=== PATIENT | female | born 1985 | race Hispanic/Latino ===

== ENCOUNTER 2020-02-13 19:19 | Emergency (ER) | payer OTHER ==
--- NOTE | 2020-02-13 20:44 | EDM.PDOC ---
ED HPI GENERAL MEDICAL PROBLEM - General Chief Complaint: EXPEDITION SUPERVISOR Problem Stated Complaint: 9 WKS , BLEEDING Time Seen by Provider: 02/13/20 19:23 Source of Information: Reports: Patient History Limitations: Reports: No Limitations - History of Present Illness INITIAL COMMENTS - FREE TEXT/NARRATIVE: HISTORY AND PHYSICAL: History of present illness: Patient is a 34-year-old female who presents to the emergency room with complaints of vaginal bleeding in . She states this evening she had gone to the bathroom to have a bowel movement and as she was bearing down and wiping she noticed blood on the toilet paper. Initially she thought it was from her rectum but then after rechecking it was from the vagina. She denies any abdominal pain, cramping, dysuria, recent pelvic activity or vaginal discharge. Patient denies any fever, chills, headache, change in vision, syncope or near syncope. Denies any chest pain, back pain, shortness of breath or cough. Patient has been eating and drinking appropriately. : 3, Para: 2. Currently 9 weeks , sees Dr Dawkins at [facility]. Review of systems: As per history of present illness and below otherwise all systems reviewed and negative. Past medical history: As per history of present illness and as reviewed below otherwise noncontributory. Surgical history: As per history of present illness and as reviewed below otherwise noncontributory. Social history: See social history for further information Family history: As per history of present illness and as reviewed below otherwise noncontributory. Physical exam: General: Well developed and well nourished. Alert and orientated x 3. Nontoxic in appearance and in no acute distress. Vital signs are stable and have been re viewed by me. Nursing notes were reviewed. HEENT: Atraumatic, normocephalic, pupils equal and reactive bilaterally, negative for conjunctival pallor or scleral icterus, mucous membranes moist, TMs normal bilaterally, throat clear, neck supple, nontender, trachea midline. No drooling or trismus noted. No meningeal signs. No hot potato voice noted. Lungs: Clear to auscultation, breath sounds equal bilaterally, chest nontender. Normal work of breathing, no accessory muscles used. Heart: S1S2, regular rate and rhythm without overt murmur Abdomen: Soft, nondistended, nontender. Negative for masses or hepatosplenomegaly. Negative for costovertebral tenderness. Pelvis: Stable nontender. Genitourinary: This was done with consent and a hotel associate at the bedside. The cervical os is closed and there is dark blood in the vaginal vault. No cervical motion tenderness. Skin: Intact, warm, dry. No lesions or rashes noted. Hematologic: No petechiae or purpra. Mucosa appropriate color and normal nail bed color and refill. Extremities: Atraumatic, moves all extremities per self without difficulty or deficits, negative for cords or calf pain. Neurovascular unremarkable. Neuro: Awake, alert, oriented. Cranial nerves II through XII unremarkable. Cerebellum unremarkable. Motor and sensory unremarkable throughout. Exam nonfocal. Psychiatric: Mood and affect are appropriate. Normal thought process. Answering questions appropriately. Notes: Pelvic exam was done, I do not notice any active bleeding. Lab work is unremarkable. Ultrasound shows single IUP with approximate age of 9 weeks and 4 days with heart rate of 179. Lab work is unremarkable. I have talked with the patient about today's findings, in addition to providing specific details for plan of care. Reassessment at the time of disposition demonstrates that the patient is in no acute distress. The patient is stable for discharge, counseling was provided and we discussed in great detail signs and symptoms that would prompt them to return to the Emergency Department. Medication, follow up and supportive care measures were reviewed and discussed. Voices understanding and is agreeable to plan of care. Denies any further questions or concerns at this time. Diagnostics: CBC, CMP, UA, hCG U, AB/RH, transvaginal ultrasound Therapeutics: None Prescription: Outpatient quantitative hCG Impression: Threatened miscarriage Plan: 1. Please start and/or continue to take your vitamin with folic acid once daily. 2. Pelvic rest until cleared by your OBGYN (no tampons, sex, etc...) 3. Tylenol as needed for pain management. 4. Follow up with your EXPEDITION SUPERVISOR in the next 1-2 days. Return to the ED as needed and as discussed. Definitive disposition and diagnosis as appropriate pending reevaluation and review of above. - Related Data Allergies Allergy/AdvReac Type Severity Reaction Status Date / Time No Known Allergies Allergy Verified 02/13/20 21:24 Home Meds: Home Meds Pnv No.95/Ferrous Fum/Folic AC [ Caplet] 1 cap PO DAILY 02/13/20 [History] Past Medical History - Past Health History Medical/Surgical History: Denies Medical/Surgical History Social & Family History - Family History Family Medical History: No Pertinent Family History - Caffeine Use Caffeine Use: Reports: None ED ROS GENERAL - Review of Systems Review Of Systems: Comprehensive ROS is negative, except as noted in HPI. ED EXAM - Physical Exam Exam: See Below (See dictation) Course - Vital Signs Last Recorded V/S: Last Vital Signs Temp 97.2 F 02/13/20 22:38 Pulse 77 02/13/20 22:38 Resp 18 02/13/20 22:38 BP 137/82 02/13/20 22:38 Pulse Ox 97 02/13/20 22:38 - Orders/Labs/Meds Labs: Laboratory Tests 02/13/20 02/13/20 02/13/20 Range/Units 20:20 20:29 20:29 WBC 9.17 (4.0-11.0) K/uL RBC 4.29 L (4.30-5.90) M/uL Hgb 13.0 (12.0-16.0) g/dL Hct 38.9 (36.0-46.0) % MCV 90.7 (80.0-98.0) fL MCH 30.3 (27.0-32.0) pg MCHC 33.4 (31.0-37.0) g/dL RDW Std Deviation 42.7 (28.0-62.0) fl RDW Coeff of Norma 13 (11.0-15.0) % Plt Count 266 (150-400) K/uL MPV 10.70 (7.40-12.00) fL Neut % (Auto) 69.0 (48.0-80.0) % Lymph % (Auto) 23.0 (16.0-40.0) % Frio % (Auto) 7.3 (0.0-15.0) % Eos % (Auto) 0.5 (0.0-7.0) % Baso % (Auto) 0.2 (0.0-1.5) % Neut # (Auto) 6.3 H (1.4-5.7) K/uL Lymph # (Auto) 2.1 (0.6-2.4) K/uL Frio # (Auto) 0.7 (0.0-0.8) K/uL Eos # (Auto) 0.1 (0.0-0.7) K/uL Baso # (Auto) 0.0 (0.0-0.1) K/uL Nucleated RBC % 0.0 /100WBC Nucleated RBCs # 0 K/uL HCG, Quant 793047.0 mIU/mL Urine Color YELLOW Urine Appearance SLT CLOUDY Urine pH 7.0 (5.0-8.0) Ur Specific Montgomery 1.025 (1.001-1.035) Urine Protein NEGATIVE (NEGATIVE) mg/dL Urine Glucose (UA) NEGATIVE (NEGATIVE) mg/dL Urine Ketones NEGATIVE (NEGATIVE) mg/dL Urine Occult Blood MODERATE H (NEGATIVE) Urine Nitrite NEGATIVE (NEGATIVE) Urine Bilirubin NEGATIVE (NEGATIVE) Urine Urobilinogen 0.2 (<2.0) EU/dL Ur Leukocyte Esterase NEGATIVE (NEGATIVE) Urine RBC 2-3 (0-2/HPF) Urine WBC 0-1 (0-5/HPF) Ur Epithelial Cells RARE (NONE-FEW) Amorphous Sediment MODERATE (NEGATIVE) Urine Bacteria RARE (NEGATIVE) Blood Type 02/13/20 Range/Units 20:29 WBC (4.0-11.0) K/uL RBC (4.30-5.90) M/uL Hgb (12.0-16.0) g/dL Hct (36.0-46.0) % MCV (80.0-98.0) fL MCH (27.0-32.0) pg MCHC (31.0-37.0) g/dL RDW Std Deviation (28.0-62.0) fl RDW Coeff of Norma (11.0-15.0) % Plt Count (150-400) K/uL MPV (7.40-12.00) fL Neut % (Auto) (48.0-80.0) % Lymph % (Auto) (16.0-40.0) % Frio % (Auto) (0.0-15.0) % Eos % (Auto) (0.0-7.0) % Baso % (Auto) (0.0-1.5) % Neut # (Auto) (1.4-5.7) K/uL Lymph # (Auto) (0.6-2.4) K/uL Frio # (Auto) (0.0-0.8) K/uL Eos # (Auto) (0.0-0.7) K/uL Baso # (Auto) (0.0-0.1) K/uL Nucleated RBC % /100WBC Nucleated RBCs # K/uL HCG, Quant mIU/mL Urine Color Urine Appearance Urine pH (5.0-8.0) Ur Specific Montgomery (1.001-1.035) Urine Protein (NEGATIVE) mg/dL Urine Glucose (UA) (NEGATIVE) mg/dL Urine Ketones (NEGATIVE) mg/dL Urine Occult Blood (NEGATIVE) Urine Nitrite (NEGATIVE) Urine Bilirubin (NEGATIVE) Urine Urobilinogen (<2.0) EU/dL Ur Leukocyte Esterase (NEGATIVE) Urine RBC (0-2/HPF) Urine WBC (0-5/HPF) Ur Epithelial Cells (NONE-FEW) Amorphous Sediment (NEGATIVE) Urine Bacteria (NEGATIVE) Blood Type O POSITIVE Departure - Departure Time of Disposition: 22:00 Disposition: Home, Self-Care 01 Clinical Impression: Threatened miscarriage in early - Discharge Information Instructions: Threatened Miscarriage, [id number] Referrals: PCP,None [Primary Care Provider] - Forms: ED Department Discharge Additional Instructions: The following information is given to patients seen in the emergency department who are being discharged to home. This information is to outline your options for follow-up care. We provide all patients seen in our emergency department with a follow-up referral. The need for follow-up, as well as the timing and circumstances, are variable depending upon the specifics of your emergency department visit. If you don't have a primary care physician on staff, we will provide you with a referral. We always advise you to contact your personal physician following an emergency department visit to inform them of the circumstance of the visit and for follow-up with them and/or the need for any referrals to a consulting specialist. The emergency department will also refer you to a specialist when appropriate. This referral assures that you have the opportunity for follow-up care with a specialist. All of these measure are taken in an effort to provide you with optimal care, which includes your follow-up. Under all circumstances we always encourage you to contact your private physician who remains a resource for coordinating your care. When calling for follow-up care, please make the office aware that this follow-up is from your recent emergency room visit. If for any reason you are refused follow-up, please contact the [facility] Emergency Department at and asked to speak to the emergency department charge nurse. [facility] [address], [place] [address] [facility] [address] [place] [id number] Thank you for choosing the [facility] emergency department in [place] for your medical needs today. It was a pleasure caring for you. Today you were seen in the emergency department for vaginal bleeding in . 1. Please start and/or continue to take your vitamin with folic acid once daily. 2. Pelvic rest until cleared by your OBGYN (no tampons, sex, etc...) 3. Tylenol as needed for pain management. 4. Follow up with your EXPEDITION SUPERVISOR in the next 1-2 days. Return to the ED as needed and as discussed.
--- NOTE | 2020-02-13 22:18 | US ---
Indication: Bleeding Technique: Multiple grayscale and Doppler sonographic images of the pelvis. Comparison: None Findings: There is a single live intrauterine gestation with crown-rump length of 2.3 cm, corresponding to approximate gestational age of 9 weeks, 4 days. A heart beat is detected with rate of 179 beats per minute. There is otherwise normal sonographic appearance of the uterus. The right ovary measures 2.3 x 3.4 x 3.5 cm and appears unremarkable. The left ovary measures 3.1 x 2.2 x 3.2 cm. A 2.3 cm cystic focus in the left ovary likely represents a corpus luteum. Impression: Single live intrauterine gestation with approximate age of 9 weeks, 4 days and heart rate of 179 bpm. Dictated by Dorinda Quinn MD @ Feb 13 2020 10:12PM Signed by Dr. Dorinda Quinn @ Feb 13 2020 10:17PM
[2020-02-13 23:17] VITALS: BP 137/82; PULSE 77
== END 2020-02-13 22:38 | disposition home or self-care (01) ==
LOC: MW.ED 19:19
DX: O20.0 Threatened abortion (principal); Z3A.09 9 weeks gestation of pregnancy
CPT/HCPCS: 36415; 76801; 76801-26; 81001; 84702; 85025; 86900; 86901; 99282; 99284-25

== ENCOUNTER 2020-08-24 18:25 | Inpatient (IN) | payer OTHER ==
[2020-08-24] MEDS ORDERED: Sodium Chloride 0.9% 10 ML Syringe FLUSH PRN (19:36)
[2020-08-24] MEDS ORDERED: Citric Acid/Sodium Citrate Solution 30 ML Cup PO ONE (19:36)
[2020-08-24] MEDS ORDERED: Sodium Chloride 0.9% 2.5 ML Syringe FLUSH PRN (19:36)
[2020-08-24] MEDS ORDERED: Sodium Chloride 0.9% 10 ML SDV IV PRN (19:36)
[2020-08-24] MEDS ORDERED: ceFAZolin 2 GM in Premix Bag 1 BAG IV ONE (19:36)
[2020-08-24] MEDS: Lactated Ringers 1,000 ML IV SCH ×3 (19:40→20:54)
[2020-08-24] MEDS ORDERED: Oxytocin/0.9 % Sodium Chloride 30 UNIT/500 ML BAG IV SCH (19:45)
[2020-08-24] MEDS ORDERED: Sodium Chloride 0.9% 60 ML ONE (20:05)
[2020-08-24] MEDS ORDERED: Nalbuphine 10 MG/1 ML Vial IVPUSH PRN (20:51)
[2020-08-24] MEDS ORDERED: Ondansetron 4 MG/2 ML SDV IVPUSH PRN ×2 (20:51→22:40)
[2020-08-24] MEDS ORDERED: fentaNYL 100 MCG/2 ML SDV IVPUSH PRN (20:51)
[2020-08-24] MEDS ORDERED: diphenhydrAMINE 50 MG/ML SDV IVPUSH PRN ×2 (20:51→22:40)
[2020-08-24] MEDS ORDERED: Acetaminophen/oxyCODONE 325-5 MG Tab PO PRN (20:51)
[2020-08-24] MEDS ORDERED: Naloxone 0.4 MG/ML Syringe IVPUSH PRN (20:51)
--- NOTE | 2020-08-24 20:51 | PCM.PREANE ---
Preanesthetic Assessment - Anesthesia/Transfusion/Family Hx Anesthesia History: Prior Anesthesia Without Reaction Family History of Anesthesia Reaction: No Transfusion History: No Prior Transfusion(s) - Review of Systems General: No Symptoms Pulmonary: No Symptoms Cardiovascular: No Symptoms Gastrointestinal: No Symptoms Neurological: No Symptoms Other: Reports: None - Physical Assessment NPO Status Date: 08/24/20 (1300 lunch) Height: 5 ft 2 in Weight: 242 lb ASA Class: 2E Mental Status: Alert & Oriented x3 Airway Class: Mallampati = 2 Dentition: Reports: Normal Dentition ROM/Head Extension: Limited/Partial Lungs: Clear to Auscultation, Normal Respiratory Effort Cardiovascular: Regular Rate, Regular Rhythm - Lab Values: Laboratory Last Values WBC 11.15 K/uL (4.0-11.0) H 08/24/20 19:40 RBC 4.01 M/uL (4.30-5.90) L 08/24/20 19:40 Hgb 11.3 g/dL (12.0-16.0) L 08/24/20 19:40 Hct 34.8 % (36.0-46.0) L 08/24/20 19:40 MCV 86.8 fL (80.0-98.0) 08/24/20 19:40 MCH 28.2 pg (27.0-32.0) 08/24/20 19:40 MCHC 32.5 g/dL (31.0-37.0) 08/24/20 19:40 RDW Std Deviation 46.9 fl (28.0-62.0) 08/24/20 19:40 RDW Coeff of Norma 15 % (11.0-15.0) 08/24/20 19:40 Plt Count 209 K/uL (150-400) 08/24/20 19:40 MPV 12.00 fL (7.40-12.00) 08/24/20 19:40 Nucleated RBC % 0.0 /100WBC 08/24/20 19:40 Nucleated RBCs # 0 K/uL 08/24/20 19:40 POC Glucose 90 mg/dL (70-99) 08/24/20 19:43 Membrane Rupture POSITIVE 08/24/20 18:20 SARS-CoV-2 RNA (NEREIDA) NEGATIVE (NEGATIVE) 08/24/20 18:20 - Allergies Allergies/Adverse Reactions: Allergies Allergy/AdvReac Type Severity Reaction Status Date / Time No Known Allergies Allergy Verified 06/29/20 13:12 - Acknowledgements Anesthesia Type Planned: Spinal Pt an Appropriate Candidate for the Planned Anesthesia: Yes Alternatives and Risks of Anesthesia Discussed w Pt/Guardian: Yes Pt/Guardian Understands and Agrees with Anesthesia Plan: Yes Additional Comments: npo after 1300, water till 1600 G3 scheduled c/s Monday gestational DM obesity par no questions PreAnesthesia Questionnaire - Past Health History Medical/Surgical History: Denies Medical/Surgical History HEENT History: Reports: Impaired Vision Other HEENT History: Contacts Cardiovascular History: Reports: None Respiratory History: Reports: None Gastrointestinal History: Reports: Cholelithiasis Genitourinary History: Reports: None ASSURANCE ENGINEER History: Reports: Other OB/BYN History: x 2 c section Musculoskeletal History: Reports: None Neurological History: Reports: None Psychiatric History: Reports: None Endocrine/Metabolic History: Reports: Diabetes, Gestational, Obesity/BMI 30+ Hematologic History: Reports: None Immunologic History: Reports: None Oncologic (Cancer) History: Reports: None Dermatologic History: Reports: None - Infectious Disease History Infectious Disease History: Reports: None - Past Surgical History Head Surgeries/Procedures: Reports: None HEENT Surgical History: Reports: Adenoidectomy, Oral Surgery, Tonsillectomy GI Surgical History: Reports: Cholecystectomy Female Surgical History: Reports: Section Endocrine Surgical History: Reports: None Dermatological Surgical History: Reports: None - HOME MEDS Home Medications: Home Meds Pnv No.95/Ferrous Fum/Folic AC [ Caplet] 1 cap PO DAILY 02/13/20 [History] Insulin Isophane NPH, Human [HumuLIN N] 40 unit SUBCUT QAM 08/24/20 [History] Insulin Isophane NPH, Human [HumuLIN N] 50 unit SUBCUT QPM 08/24/20 [History] - CURRENT (IN HOUSE) MEDS Current Meds: Current Medications Lactated Ringer's (Ringers, Lactated) 1,000 mls @ 500 mls/hr IV BOLUS PEYTON Last Admin: 08/24/20 20:09 Dose: 999 mls/hr Documented by: Oxytocin/Sodium Chloride (Oxytocin 30 Unit/500 Ml-Ns) 30 unit in 500 mls @ 250 mls/hr IV TITRATE PEYTON Sodium Chloride (Sodium Chloride 0.9% 10 Ml Syringe) 10 ml FLUSH ASDIRECTED PRN PRN Reason: Keep Vein Open Sodium Chloride (Sodium Chloride 0.9% 2.5 Ml Syringe) 2.5 ml FLUSH ASDIRECTED PRN PRN Reason: Keep Vein Open Sodium Chloride (Sodium Chloride 0.9% 10 Ml Sdv) 10 ml IV ASDIRECTED PRN PRN Reason: IV Use Discontinued Medications Citric Acid/Sodium Citrate (Citric Acid/Sodium Citrate Solution 30 Ml Cup) 30 ml PO ONETIME ONE Stop: 08/24/20 19:37 Cefazolin Sodium/Dextrose 2 gm (/ Premix) 50 mls @ 100 mls/hr IV ONETIME ONE Stop: 08/24/20 20:05 Sodium Chloride (Normal Saline) Confirm Administered Dose 60 mls @ as directed .ROUTE .K-MED ONE Stop: 08/24/20 20:06
[2020-08-24] MEDS ORDERED: Propofol 200 MG/20 ML SDV ONE (20:57)
--- NOTE | 2020-08-24 21:17 | PCM.LDHP ---
L&D History of Present Illness - General Date of Service: 08/24/20 Admit Problem/Dx: Patient Status Order with Admit Dx/Problem 08/24/20 18:36 Patient Status [ADT] Routine 08/24/20 19:36 Patient Status [ADT] Routine Admission Diagnosis/Problem Admission Diagnosis/Problem Source of Information: Patient History Limitations: Reports: No Limitations - History of Present Illness Introduction:: Presents with sudden onset of leakage of fluid vaginally around 5 pm. No vaginal bleeding. No regular contractions. Good movement has been noted. - Related Data Allergies/Adverse Reactions: Allergies Allergy/AdvReac Type Severity Reaction Status Date / Time No Known Allergies Allergy Verified 06/29/20 13:12 Home Medications: Home Meds Pnv No.95/Ferrous Fum/Folic AC [ Caplet] 1 cap PO DAILY 02/13/20 [History] Insulin Isophane NPH, Human [HumuLIN N] 40 unit SUBCUT QAM 08/24/20 [History] Insulin Isophane NPH, Human [HumuLIN N] 50 unit SUBCUT QPM 08/24/20 [History] Past Medical History - Past Health History Medical/Surgical History: Denies Medical/Surgical History HEENT History: Reports: Impaired Vision Other HEENT History: Contacts Cardiovascular History: Reports: None Respiratory History: Reports: None Gastrointestinal History: Reports: Cholelithiasis Genitourinary History: Reports: None STAIN APPLICATOR History: Reports: Other OB/BYN History: x 2 c section Musculoskeletal History: Reports: None Neurological History: Reports: None Psychiatric History: Reports: None Endocrine/Metabolic History: Reports: Diabetes, Gestational, Obesity/BMI 30+ Hematologic History: Reports: None Immunologic History: Reports: None Oncologic (Cancer) History: Reports: None Dermatologic History: Reports: None - Infectious Disease History Infectious Disease History: Reports: None - Past Surgical History Head Surgeries/Procedures: Reports: None HEENT Surgical History: Reports: Adenoidectomy, Oral Surgery, Tonsillectomy GI Surgical History: Reports: Cholecystectomy Female Surgical History: Reports: Section Endocrine Surgical History: Reports: None Dermatological Surgical History: Reports: None Social & Family History - Family History Family Medical History: No Pertinent Family History HEENT: Reports: None Cardiac: Reports: None Respiratory: Reports: None GI: Reports: Cholelithiasis : Reports: None OBGYN: Reports: Musculoskeletal: Reports: None Neurological: Reports: None Psychiatric: Reports: None Endocrine/Metabolic: Reports: Diabetes, Type I Hematologic: Reports: None Immunologic: Reports: None Dermatologic: Reports: None Oncologic: Reports: Ovarian - Tobacco Use Tobacco Use Status *Q: Former Tobacco User Used Tobacco, but Quit: No Tobacco Use Comment: "Social smoker", "None during " - Caffeine Use Caffeine Use: Reports: None - Recreational Drug Use Recreational Drug Use: No H&P Review of Systems - Review of Systems: Review Of Systems: Comprehensive ROS is negative, except as noted in HPI. L&D Exam - Exam Exam: See Below - Vital Signs Weight: 109.769 kg - OB Specific Contraction Intensity: Mild Heart Rate (FHR) Variability: Moderate (6-25 bmp) - Exam General: Alert, Oriented Lungs: Clear to Auscultation, Normal Respiratory Effort Cardiovascular: Regular Rate, Regular Rhythm GI/Abdominal Exam: Soft, Non-Tender Back Exam: No: CVA Tenderness (L), CVA Tenderness (R), Paraspinal Tenderness Extremities: Pedal Edema (1+) Skin: Warm, Dry, Intact Neurological: Cranial Nerves Intact, Reflexes Equal Bilateral Psychiatric: Alert, Normal Affect, Normal Mood - Patient Data Lab Results Last 24 hrs: Laboratory Results - last 24 hr 08/24/20 08/24/20 08/24/20 Range/Units 18:20 18:20 19:40 WBC 11.15 H (4.0-11.0) K/uL RBC 4.01 L (4.30-5.90) M/uL Hgb 11.3 L (12.0-16.0) g/dL Hct 34.8 L (36.0-46.0) % MCV 86.8 (80.0-98.0) fL MCH 28.2 (27.0-32.0) pg MCHC 32.5 (31.0-37.0) g/dL RDW Std Deviation 46.9 (28.0-62.0) fl RDW Coeff of Norma 15 (11.0-15.0) % Plt Count 209 (150-400) K/uL MPV 12.00 (7.40-12.00) fL Nucleated RBC % 0.0 /100WBC Nucleated RBCs # 0 K/uL POC Glucose (70-99) mg/dL Membrane Rupture POSITIVE SARS-CoV-2 RNA (NEREIDA) NEGATIVE (NEGATIVE) Blood Type Antibody Screen 08/24/20 08/24/20 Range/Units 19:40 19:43 WBC (4.0-11.0) K/uL RBC (4.30-5.90) M/uL Hgb (12.0-16.0) g/dL Hct (36.0-46.0) % MCV (80.0-98.0) fL MCH (27.0-32.0) pg MCHC (31.0-37.0) g/dL RDW Std Deviation (28.0-62.0) fl RDW Coeff of Norma (11.0-15.0) % Plt Count (150-400) K/uL MPV (7.40-12.00) fL Nucleated RBC % /100WBC Nucleated RBCs # K/uL POC Glucose 90 (70-99) mg/dL Membrane Rupture SARS-CoV-2 RNA (NEREIDA) (NEGATIVE) Blood Type O POSITIVE Antibody Screen NEGATIVE Result Diagrams: 08/24/20 19:40 - Problem List (1) Spontaneous rupture of amniotic membranes SNOMED Code(s): 283971176 ICD Code: [id number] - Status: Acute Current Visit: Yes Problem List Initiated/Reviewed/Updated: Yes Orders Last 24hrs: Active Orders 24 hr Category Date Time Status Patient Status [ADT] Routine ADT 08/24/20 18:36 Active Patient Status [ADT] Routine ADT 08/24/20 19:36 Active Bradycardia-Neuroaxis [employer] [RC] ROUTINE Care 08/24/20 20:51 Active Non Stress Test [RC] PER UNIT ROUTINE Care 08/24/20 18:36 Active Non Stress Test [RC] PER UNIT ROUTINE Care 08/24/20 19:36 Active Hypertension-Neuroaxis [employer] [RC] ROUTINE Care 08/24/20 20:51 Active Hypotension-Neuroaxis [employer] [RC] ROUTINE Care 08/24/20 20:51 Active Notify Provider Vital Signs [RC] PRN Care 08/24/20 19:39 Active Oxygen Therapy [RC] PER UNIT ROUTINE Care 08/24/20 20:51 Active Procedure Site Prep Instruct [RC] ASDIRECTED Care 08/24/20 19:36 Active Up ad Suzan [RC] ASDIRECTED Care 08/24/20 18:36 Active Up ad Suzan [RC] ASDIRECTED Care 08/24/20 19:36 Active Vaginal Exam [RC] Click to Edit Care 08/24/20 18:36 Active Verify Patient Consent Obtain [RC] ASDIRECTED Care 08/24/20 19:36 Active Vital Signs [RC] PER UNIT ROUTINE Care 08/24/20 18:36 Active Vital Signs [RC] PER UNIT ROUTINE Care 08/24/20 19:36 Active Vital Signs [RC] Q1H Care 08/24/20 20:51 Active RPR (SYPHILIS SERO) W/ RFLX [REF] Routine Lab 08/24/20 19:40 Received Acetaminophen/oxyCODONE [Percocet 325-5 MG] Med 08/24/20 20:51 Active 2 tab PO Q6H PRN Lactated Ringers [Ringers, Lactated] 1,000 ml Med 08/24/20 19:45 Active IV BOLUS Nalbuphine [Nubain] Med 08/24/20 20:51 Active 5 mg IVPUSH ASDIRECTED PRN Naloxone [Narcan] Med 08/24/20 20:51 Active 0.1 mg IVPUSH ONETIME PRN Ondansetron [Zofran] Med 08/24/20 20:51 Active 4 mg IVPUSH Q6H PRN Oxytocin/0.9 % Sodium Chloride [Oxytocin 30 Unit/500 ML Med 08/24/20 19:45 Active -NS] 30 unit in 500 ml IV TITRATE Sodium Chloride 0.9% [Normal Saline] Med 08/24/20 19:36 Active 10 ml IV ASDIRECTED PRN Sodium Chloride 0.9% [Saline Flush] Med 08/24/20 19:36 Active 10 ml FLUSH ASDIRECTED PRN Sodium Chloride 0.9% [Saline Flush] Med 08/24/20 19:36 Active 2.5 ml FLUSH ASDIRECTED PRN diphenhydrAMINE [Benadryl] Med 08/24/20 20:51 Active 12.5 mg IVPUSH Q2H PRN fentaNYL [Sublimaze] Med 08/24/20 20:51 Active 50 mcg IVPUSH Q1H PRN Peripheral IV Insertion Adult [OM.PC] Routine Oth 08/24/20 19:36 Ordered Schedule Procedure [COMM] Per Unit Routine Oth 08/24/20 19:36 Ordered Resuscitation Status Routine Resus Stat 08/24/20 18:36 Ordered Medication Orders Diphenhydramine HCl (Diphenhydramine 50 Mg/Ml Sdv) 12.5 mg IVPUSH Q2H PRN PRN Reason: Itching Fentanyl (Fentanyl 100 Mcg/2 Ml Sdv) 50 mcg IVPUSH Q1H PRN PRN Reason: Pain (severe 7-10) Lactated Ringer's (Ringers, Lactated) 1,000 mls @ 500 mls/hr IV BOLUS PEYTON Last Admin: 08/24/20 20:54 Dose: 999 mls/hr Documented by: Infusion: 08/24/20 20:54 Dose: 999 mls/hr Documented by: Admin: 08/24/20 20:09 Dose: 999 mls/hr Documented by: Infusion: 08/24/20 20:09 Dose: 999 mls/hr Documented by: Admin: 08/24/20 19:40 Dose: 999 mls/hr Documented by: SHWETHA Oxytocin/Sodium Chloride (Oxytocin 30 Unit/500 Ml-Ns) 30 unit in 500 mls @ 250 mls/hr IV TITRATE PEYTON Nalbuphine HCl (Nalbuphine 10 Mg/1 Ml Vial) 5 mg IVPUSH ASDIRECTED PRN PRN Reason: Itching Naloxone HCl (Naloxone 0.4 Mg/Ml Syringe) 0.1 mg IVPUSH ONETIME PRN PRN Reason: Respiratory Depression Stop: 08/25/20 20:51 Ondansetron HCl (Ondansetron 4 Mg/2 Ml Sdv) 4 mg IVPUSH Q6H PRN PRN Reason: Nausea Oxycodone/Acetaminophen (Acetaminophen/Oxycodone 325-5 Mg Tab) 2 tab PO Q6H PRN PRN Reason: Pain (moderate 4-6) Sodium Chloride (Sodium Chloride 0.9% 10 Ml Syringe) 10 ml FLUSH ASDIRECTED PRN PRN Reason: Keep Vein Open Sodium Chloride (Sodium Chloride 0.9% 2.5 Ml Syringe) 2.5 ml FLUSH ASDIRECTED PRN PRN Reason: Keep Vein Open Sodium Chloride (Sodium Chloride 0.9% 10 Ml Sdv) 10 ml IV ASDIRECTED PRN PRN Reason: IV Use Assessment/Plan Comment:: 36/4 week IUP ROM, amnisure positive Previous c section, desires repeat GBBS negative Gestational diabetes on insulin Patient is admitted, routine labs. IV hydrated. Plan to proceed with repeat c section given PROM. Risks of procedure discussed including infection, bleeding, possible trauma to surrounding bowel, bladder, ureter. In case of excessive blood loss, risk of blood product transfusion. Risk of hysterectomy in life saving circumstances reviewed. Risk of anesthesia, risk of thromboemblic event discussed. Patient voices her understanding, questions answered and she agrees to proceed. Proper consent obtained.
[2020-08-24] MEDS ORDERED: Morphine PF 10 MG/10 ML SDV ONE (21:22)
[2020-08-24] MEDS ORDERED: ceFAZolin 1 GM Vial ONE (22:03)
[2020-08-24] MEDS ORDERED: ePHEDrine 50 MG/ML SDV ONE (22:03)
[2020-08-24] MEDS ORDERED: Oxytocin 10 Units/1 ML SDV ONE (22:04)
[2020-08-24] MEDS ORDERED: Tranexamic Acid 1,000 MG in Sodium Chloride 0.9% 100 ML IV PRN (22:40)
[2020-08-24] MEDS ORDERED: Bisacodyl 10 MG Supp RECTAL PRN (22:40)
[2020-08-24] MEDS ORDERED: Ibuprofen 800 MG Tab PO PRN (22:40)
[2020-08-24] MEDS ORDERED: Lanolin 100% Cream 7 GM Tube TOP PRN (22:40)
[2020-08-24] MEDS ORDERED: Oxytocin 10 Units/1 ML SDV IM PRN (22:40)
[2020-08-24] MEDS ORDERED: 50% Dextrose in Water 50 ML Syringe IV PRN (22:44)
[2020-08-24] MEDS ORDERED: Glucagon,Human Recombinant 1 MG Vial IM PRN (22:44)
[2020-08-24] MEDS ORDERED: Lactated Ringers 1,000 ML IV SCH (22:45)
--- NOTE | 2020-08-24 22:58 | PCM.OPNOTE ---
- General Post-Op/Procedure Note Date of Surgery/Procedure: 08/24/20 Operative Procedure(s): Repeat LTCS Findings: Viable female APGARs 7, 9 weight 3370 gm. Intact placenta with 3V cord. Clear amniotic fluid. Transverse presentation, head maternal left Pre Op Diagnosis: 36/4 week IUP. ROM. Previous c section, desires repeat. Malpresentation (transverse). Gestational diabetes Post-Op Diagnosis: Same Anesthesia Technique: Spinal Primary Surgeon: Keri Jules Fluid Replacement, Intraop: 3,000 EBL in mLs: 500 Complications: none known Condition: Stable Free Text/Narrative:: Intake & Output 08/24/20 08/24/20 08/24/20 06:59 14:59 22:59 Intake Total 1000 Balance 1000 Dictation [id number]
--- NOTE | 2020-08-24 23:23 | PCM.POSTAN ---
POST ANESTHESIA ASSESSMENT - MENTAL STATUS Mental Status: Alert, Oriented - VITAL SIGNS Vital Signs: SEE PIP charting - RESPIRATORY Respiratory Status: Respiratory Rate WNL, Airway Patent, O2 Saturation Stable - CARDIOVASCULAR CV Status: Pulse Rate WNL, Blood Pressure Stable - GASTROINTESTINAL GI Status: No Symptoms - PAIN Pain Score: 0 - POST OP HYDRATION Hydration Status: Adequate & Stable - OBSERVATIONS Free Text/Narrative:: no anesthesia issues
--- NOTE | 2020-08-25 01:04 | OR ---
SURGEON: Keri Jules M.D. DATE OF PROCEDURE: 08/24/2020 PREOPERATIVE DIAGNOSES: 1. A 36 and 4-week intrauterine . 2. rupture of membranes. 3. Previous section, desires repeat. 4. Malpresentation, fetus, transverse 5. Gestational diabetes. POSTOPERATIVE DIAGNOSES: 1. A 36 and 4-week intrauterine . 2. rupture of membranes. 3. Previous section, desires repeat. 4. Malpresentation, fetus, transverse 5. Gestational diabetes. PROCEDURE: Repeat low-transverse section. PRIMARY SURGEON: Keri Jules M.D. ANESTHESIA: Spinal. ESTIMATED BLOOD LOSS: 500 mL. FLUIDS: 3000 mL crystalloid total. FINDINGS: A viable female, scores 7 at 1 minute and 9 at 5 minutes, weight of 3370 g, delivery, intact placenta, 3-vessel cord, clear amniotic fluid. DISPOSITION: Infant to the nursery and mom to the PACU stable. PROCEDURE DETAILS: Alpa is a 35-year-old G4, P2-0-1-2, at 36 and 4 weeks' gestational age, who presents on the evening of 08/24/2020 with leakage of fluid at approximately 5 p.m. On presentation, heart tones are found to be category I. She is having no regular contractions. AmniSure is positive. The patient did receive steroids for lung maturity, approximately 35 weeks, for vaginal bleeding. A sonogram has indicated that the fetus is transverse presentation. At this time, I am advising proceeding with a repeat delivery. Risks of the procedure have been discussed and proper consent obtained. The patient was taken to the operating room, where she underwent a spinal anesthetic; was placed in the dorsal supine position with a leftward tilt, SCDs to the lower extremities and Simons to gravity; and was prepped and draped in the usual sterile fashion. A time-out was performed. She received Ancef prophylactically. Anesthesia was tested and found to be adequate. A transverse mid abdomen skin incision was created. I had discussed with the patient prior to the procedure. Her previous incisions were Pfannenstiel, but they were now well below her pannus, and in discussion of care for the incision postoperatively, it would be easier if the incision was actually made above the pannus. Once this incision was created, subcutaneous tissue was dissected down to the level of the rectus fascia, which was incised midline. At this point, with incision of the rectus fascia, there was direct entry into the peritoneal cavity. The rectus muscles were not approximated; therefore, care was taken to extend the fascial layer. It was very thin, and rectus muscles were completely lateral. At this point, the uterus was able to be visualized. A self-retaining retractor now gently was placed. The uterine position was palpated. The fetus was found to be transverse presentation with head maternal left. The uterovesical reflection was visualized. A bladder flap was created sharply and bluntly. The bladder was mobilized away from the lower uterine segment. There was some fairly dense adhesion noted along this line but was able to mobilize it away from the region of the hysterotomy. The hysterotomy was now performed. The uterine cavity was entered with a blunt- ended scalpel. The hysterotomy was extended laterally. I was able to palpate the head and rotate this to the midline. At this juncture, an attempt was made to secure the head with fundal pressure to deliver the head; however, the head was wanting to remain asynclitic and was not wanting to flex; therefore, Mityvac was gently placed in order to help with head flexion while fundal pressure was applied. While the head was now delivered to the level of the hysterotomy, the head was not easily delivering, therefore, further extended the incision, fascia, and also, along the subcutaneous tissue slightly on either side and with this maneuver was able to deliver the 's head atraumatically. The vacuum was released. The remainder of the body was delivered without difficulty. The infant's oropharynx and nares were bulb suctioned. Cord was clamped x2 and cut. The infant was handed off to the attending risk control consultant with nursery staff. Cord arterial, cord venous, and cord blood samples were obtained. The placenta was now delivered. The uterine cavity was cleared of all clot and debris. The placenta will be sent to Pathology for further analysis given rupture of membranes. The hysterotomy was repaired using 0 Vicryl in a continuous running locked fashion, followed by a re-imbricating layer, region along the midline. The inferior aspect of the uterus was found to be quite thin and weak; therefore, this was replicated with 2 [id number] sutures, which re-imbricated the tissue nicely. The posterior aspect of the uterus was inspected. No defects or hematomas were found to be forming. The region was well irrigated and suction dried. The colonic gutters were cleared of all clot and debris, well irrigated, and suction dried. The hysterotomy was again inspected and found to be hemostatic. The self-retaining retractor now was gently removed. The uterus remained firm. The hysterotomy was once again inspected and found to be hemostatic. At this juncture, care was taken to identify the rectus muscles on either side and peritoneum. These were then reapproximated using 0 Vicryl in an inverted mattress suture technique. The anterior aspect of the muscle was inspected. Any areas of oozing were cauterized. The rectus fascia was now reapproximated using 0 Vicryl in a continuous running fashion, beginning laterally on each side and meeting in the midline. Subcutaneous tissue was now well irrigated and suction dried. The deep subcutaneous tissue was reapproximated with 3-0 plain in a continuous running fashion. The tissue was once again well irrigated and suction dried. The next layer of the subcutaneous tissue was now reapproximated using 3-0 plain in a continuous running fashion. Once again, the region was well irrigated and suction dried. Any areas of oozing were cauterized. Skin edges were reapproximated using 3-0 Vicryl on a Cesar needle in a subcuticular fashion. The region was cleansed well and dried, and a CASTRO dressing was applied according to branch associate protocol. Good suction was noted on the CASTRO dressing. Sponge, instrument, and needle counts were correct x2. The patient tolerated the procedure well overall. She will go to the PACU in stable condition and the to the nursery. AVTAR / MARIBEL /[id number] ERIN
[2020-08-25] MEDS: Simethicone 80 MG Tab.Chew PO SCH ×4 (01:59→18:28)
[2020-08-25] MEDS: Ketorolac 30 MG/ML SDV IVPUSH SCH ×5 (04:00→22:31)
[2020-08-25] MEDS ORDERED: Insulin NPH/Insulin Regular,Human 70-30 100 Units/ML 10 ML Vial SUBCUT SCH (07:30)
--- NOTE | 2020-08-25 09:13 | PCM.PNPP ---
- General Info Date of Service: 08/25/20 Functional Status: Reports: Pain Controlled, Tolerating Diet, Ambulating, Other (Aguirre in place with good UO. CASTRO wound vac in place with good suction. ) - Review of Systems General: Reports: No Symptoms HEENT: Reports: No Symptoms Pulmonary: Reports: No Symptoms Cardiovascular: Reports: No Symptoms Gastrointestinal: Reports: No Symptoms Genitourinary: Reports: No Symptoms Musculoskeletal: Reports: No Symptoms Skin: Reports: No Symptoms Neurological: Reports: No Symptoms Psychiatric: Reports: No Symptoms - Patient Data Vital Signs - Most Recent: Last Vital Signs Temp 36.6 C 08/25/20 08:00 Pulse 80 08/25/20 08:00 Resp 18 08/25/20 08:00 BP 145/80 H 08/25/20 08:00 Pulse Ox 98 08/25/20 08:00 Weight - Most Recent: 242 lb I&O - Last 24 Hours: Intake & Output 08/24/20 08/25/20 08/25/20 22:59 06:59 14:59 Intake Total 4000 1000 Output Total 52% Balance 4000 491 Lab Results - Last 24 Hours: Laboratory Results - last 24 hr 08/24/20 08/24/20 08/24/20 Range/Units 18:20 18:20 19:40 WBC 11.15 H (4.0-11.0) K/uL RBC 4.01 L (4.30-5.90) M/uL Hgb 11.3 L (12.0-16.0) g/dL Hct 34.8 L (36.0-46.0) % MCV 86.8 (80.0-98.0) fL MCH 28.2 (27.0-32.0) pg MCHC 32.5 (31.0-37.0) g/dL RDW Std Deviation 46.9 (28.0-62.0) fl RDW Coeff of Norma 15 (11.0-15.0) % Plt Count 209 (150-400) K/uL MPV 12.00 (7.40-12.00) fL Nucleated RBC % 0.0 /100WBC Nucleated RBCs # 0 K/uL Cord ABG pH (7.18-7.38) Cord ABG Base Excess (-10--2) Cord VBG pH (7.25-7.45) Cord VBG Base Excess (-10--2) POC Glucose (70-99) mg/dL Membrane Rupture POSITIVE SARS-CoV-2 RNA (NEREIDA) NEGATIVE (NEGATIVE) Blood Type Antibody Screen 08/24/20 08/24/20 08/24/20 Range/Units 19:40 19:43 21:46 WBC (4.0-11.0) K/uL RBC (4.30-5.90) M/uL Hgb (12.0-16.0) g/dL Hct (36.0-46.0) % MCV (80.0-98.0) fL MCH (27.0-32.0) pg MCHC (31.0-37.0) g/dL RDW Std Deviation (28.0-62.0) fl RDW Coeff of Norma (11.0-15.0) % Plt Count (150-400) K/uL MPV (7.40-12.00) fL Nucleated RBC % /100WBC Nucleated RBCs # K/uL Cord ABG pH 7.204 (7.18-7.38) Cord ABG Base Excess -3 (-10--2) Cord VBG pH 7.301 (7.25-7.45) Cord VBG Base Excess -2 (-10--2) POC Glucose 90 (70-99) mg/dL Membrane Rupture SARS-CoV-2 RNA (NEREIDA) (NEGATIVE) Blood Type O POSITIVE Antibody Screen NEGATIVE 08/24/20 08/24/20 08/24/20 Range/Units 21:46 22:15 22:58 WBC (4.0-11.0) K/uL RBC (4.30-5.90) M/uL Hgb (12.0-16.0) g/dL Hct (36.0-46.0) % MCV (80.0-98.0) fL MCH (27.0-32.0) pg MCHC (31.0-37.0) g/dL RDW Std Deviation (28.0-62.0) fl RDW Coeff of Norma (11.0-15.0) % Plt Count (150-400) K/uL MPV (7.40-12.00) fL Nucleated RBC % /100WBC Nucleated RBCs # K/uL Cord ABG pH 7.204 (7.18-7.38) Cord ABG Base Excess -3 (-10--2) Cord VBG pH 7.301 (7.25-7.45) Cord VBG Base Excess -2 (-10--2) POC Glucose 108 H (70-99) mg/dL Membrane Rupture SARS-CoV-2 RNA (NEREIDA) (NEGATIVE) Blood Type Antibody Screen 08/25/20 Range/Units 06:21 WBC (4.0-11.0) K/uL RBC (4.30-5.90) M/uL Hgb 9.9 L (12.0-16.0) g/dL Hct 30.6 L (36.0-46.0) % MCV (80.0-98.0) fL MCH (27.0-32.0) pg MCHC (31.0-37.0) g/dL RDW Std Deviation (28.0-62.0) fl RDW Coeff of Norma (11.0-15.0) % Plt Count (150-400) K/uL MPV (7.40-12.00) fL Nucleated RBC % /100WBC Nucleated RBCs # K/uL Cord ABG pH (7.18-7.38) Cord ABG Base Excess (-10--2) Cord VBG pH (7.25-7.45) Cord VBG Base Excess (-10--2) POC Glucose (70-99) mg/dL Membrane Rupture SARS-CoV-2 RNA (NEREIDA) (NEGATIVE) Blood Type Antibody Screen Med Orders - Current: Current Medications Bisacodyl (Bisacodyl 10 Mg Supp) 10 mg RECTAL ONETIME PRN PRN Reason: Constipation Dextrose/Water (50% Dextrose In Water 50 Ml Syringe) 50 ml IV ASDIRECTED PRN PRN Reason: Hypoglycemia Diphenhydramine HCl (Diphenhydramine 50 Mg/Ml Sdv) 12.5 mg IVPUSH Q2H PRN PRN Reason: Itching Diphenhydramine HCl (Diphenhydramine 50 Mg/Ml Sdv) 25 mg IVPUSH Q6H PRN PRN Reason: Itching or Nausea Docusate Sodium (Docusate Sodium 100 Mg Cap) 100 mg PO BID [facility] Emollient Ointment (Lanolin 100% Cream 7 Gm Tube) 0 gm TOP ASDIRECTED PRN PRN Reason: Sore Nipples Fentanyl (Fentanyl 100 Mcg/2 Ml Sdv) 50 mcg IVPUSH Q1H PRN PRN Reason: Pain (severe 7-10) Glucagon (Glucagon,Human Recombinant 1 Mg Vial) 1 mg IM ASDIRECTED PRN PRN Reason: Hypoglycemia Lactated Ringer's (Ringers, Lactated) 1,000 mls @ 500 mls/hr IV BOLUS [facility] Last Admin: 08/24/20 20:54 Dose: 999 mls/hr Documented by: Oxytocin/Sodium Chloride (Oxytocin 30 Unit/500 Ml-Ns) 30 unit in 500 mls @ 250 mls/hr IV TITRATE [facility] Lactated Ringer's (Ringers, Lactated) 1,000 mls @ 125 mls/hr IV ASDIRECTED [facility] Last Admin: 08/25/20 04:04 Dose: 125 mls/hr Documented by: Tranexamic Acid 1,000 mg/ (Sodium Chloride) 110 mls @ 660 mls/hr IV ONETIME PRN PRN Reason: Bleeding Ibuprofen (Ibuprofen 800 Mg Tab) 800 mg PO Q8H PRN PRN Reason: mild pain or fever Insulin Human Isoph/Insulin Regular (Insulin Nph/Insulin Regular,Human 70-30 100 Units/Ml 10 Ml Vial) 0 unit SUBCUT BIDAC [facility]; Protocol Ketorolac Tromethamine (Ketorolac 30 Mg/Ml Sdv) 30 mg IVPUSH Q6H [facility] Stop: 08/25/20 22:46 Last Admin: 08/25/20 04:00 Dose: 30 mg Documented by: Nalbuphine HCl (Nalbuphine 10 Mg/1 Ml Vial) 5 mg IVPUSH ASDIRECTED PRN PRN Reason: Itching Naloxone HCl (Naloxone 0.4 Mg/Ml Syringe) 0.1 mg IVPUSH ONETIME PRN PRN Reason: Respiratory Depression Stop: 08/25/20 20:51 Ondansetron HCl (Ondansetron 4 Mg/2 Ml Sdv) 4 mg IVPUSH Q6H PRN PRN Reason: Nausea Ondansetron HCl (Ondansetron 4 Mg/2 Ml Sdv) 4 mg IVPUSH Q4H PRN PRN Reason: Nausea/Vomiting Oxycodone/Acetaminophen (Acetaminophen/Oxycodone 325-5 Mg Tab) 2 tab PO Q6H PRN PRN Reason: Pain (moderate 4-6) Oxycodone/Acetaminophen (Acetaminophen/Oxycodone 325-5 Mg Tab) 1 tab PO Q4H PRN PRN Reason: Pain (moderate 4-6) Oxycodone/Acetaminophen (Acetaminophen/Oxycodone 325-5 Mg Tab) 2 tab PO Q4H PRN PRN Reason: Pain (moderate 4-6) Oxytocin (Oxytocin 10 Units/1 Ml Sdv) 10 unit IM ASDIRECTED PRN PRN Reason: Excessive Vaginal Bleeding Simethicone (Simethicone 80 Mg Tab.Chew) 160 mg PO QID [facility] Last Admin: 08/25/20 06:56 Dose: 160 mg Documented by: Sodium Chloride (Sodium Chloride 0.9% 10 Ml Syringe) 10 ml FLUSH ASDIRECTED PRN PRN Reason: Keep Vein Open Sodium Chloride (Sodium Chloride 0.9% 2.5 Ml Syringe) 2.5 ml FLUSH ASDIRECTED PRN PRN Reason: Keep Vein Open Sodium Chloride (Sodium Chloride 0.9% 10 Ml Sdv) 10 ml IV ASDIRECTED PRN PRN Reason: IV Use Discontinued Medications Cefazolin Sodium (Cefazolin 1 Gm Vial) Confirm Administered Dose 2 gm .ROUTE .STK-MED ONE Stop: 08/24/20 22:04 Citric Acid/Sodium Citrate (Citric Acid/Sodium Citrate Solution 30 Ml Cup) 30 ml PO ONETIME ONE Stop: 08/24/20 19:37 Last Admin: 08/25/20 09:00 Dose: Not Given Documented by: Ephedrine Sulfate (Ephedrine 50 Mg/Ml Sdv) Confirm Administered Dose 50 mg .ROUTE .STK-MED ONE Stop: 08/24/20 22:04 Cefazolin Sodium/Dextrose 2 gm (/ Premix) 50 mls @ 100 mls/hr IV ONETIME ONE Stop: 08/24/20 20:05 Last Admin: 08/25/20 09:00 Dose: Not Given Documented by: Sodium Chloride (Normal Saline) Confirm Administered Dose 60 mls @ as directed .ROUTE .STK-MED ONE Stop: 08/24/20 20:06 Last Admin: 08/25/20 09:00 Dose: Not Given Documented by: Ibuprofen (Ibuprofen 800 Mg Tab) 800 mg PO Q8H PRN PRN Reason: mild pain or fever Morphine Sulfate (Morphine Pf 10 Mg/10 Ml Sdv) Confirm Administered Dose 10 mg .ROUTE .STK-MED ONE Stop: 08/24/20 21:23 Last Admin: 08/25/20 09:00 Dose: Not Given Documented by: Oxytocin (Oxytocin 10 Units/1 Ml Sdv) Confirm Administered Dose 20 unit .ROUTE .STK-MED ONE Stop: 08/24/20 22:05 Propofol (Propofol 200 Mg/20 Ml Sdv) Confirm Administered Dose 200 mg .ROUTE .STK-MED ONE Stop: 08/24/20 20:58 - Infant Interaction Disposition, : [place] in Room with Family Support Person: - Recovery Exam Fundal Tone: Firm Fundal Level: At Umbilicus Fundal Placement: Midline Lochia Amount: Scant Lochia Color: Rubra/Red Bladder Status: Indwelling Catheter in Place - Exam General: Alert, Oriented, Cooperative, No Acute Distress HEENT: Pupils Equal, Pupils Reactive Neck: Supple, Trachea Midline, No JVD Lungs: Normal Respiratory Effort GI/Abdominal Exam: Soft, Non-Tender, No Distention Extremities: Normal Inspection, Normal Range of Motion, Non-Tender, No Pedal Edema Skin: Warm, Dry, Intact Wound/Incisions: Dressing Dry and Intact Neurological: No New Focal Deficit Psy/Mental Status: Alert, Normal Affect, Normal Mood - Problem List Review Problem List Initiated/Reviewed/Updated: Yes - Assessment Assessment:: 35yo POD1 s/p repeat due to PRROM at 36w4d, malpresentation and prior . complicated by GDMA2. Stable and recovering well. - Plan Plan:: - vitals stable - good UO, will remove aguirre this AM - tolerating PO, passed flatus - Bleeding light, Hgb 9.9, denies s/s of anemia, will start iron after discharge - encouraged ambulating Plan for discharge home tomorrow.
[2020-08-25] MEDS: Docusate Sodium 100 MG Cap PO SCH ×2 (09:54→22:28)
[2020-08-25] MEDS ORDERED: Labetalol 100 MG Tab PO ONE (17:44)
[2020-08-25] MEDS: Acetaminophen/oxyCODONE 325-5 MG Tab PO PRN (22:28)
[2020-08-26] MEDS: Acetaminophen/oxyCODONE 325-5 MG Tab PO PRN ×5 (02:44→22:33)
[2020-08-26] MEDS: Simethicone 80 MG Tab.Chew PO SCH ×4 (06:27→17:59)
[2020-08-26] MEDS: Ibuprofen 800 MG Tab PO PRN ×2 (06:27→21:16)
--- NOTE | 2020-08-26 08:33 | PCM48HPAN ---
Post Anesthesia Note - EVALUATION WITHIN 48HRS OF ANESTHETIC Vital Signs in Normal Range: Yes Patient Participated in Evaluation: Yes Respiratory Function Stable: Yes Airway Patent: Yes Cardiovascular Function Stable: Yes Hydration Status Stable: Yes Pain Control Satisfactory: Yes Nausea and Vomiting Control Satisfactory: Yes Vital Signs: Last Vital Signs Temp 98.2 F 08/26/20 07:25 Pulse 83 08/26/20 07:25 Resp 17 08/26/20 07:25 BP 135/74 08/26/20 07:25 Pulse Ox 97 08/26/20 07:25 - COMMENTS/OBSERVATIONS Free Text/Narrative:: no anesthesia issues
[2020-08-26] MEDS: Docusate Sodium 100 MG Cap PO SCH ×2 (08:51→21:16)
--- NOTE | 2020-08-26 10:38 | PCM.PNPP ---
- General Info Date of Service: 08/26/20 Functional Status: Reports: Pain Controlled, Tolerating Diet, Ambulating, Urinating - Review of Systems General: Reports: No Symptoms HEENT: Reports: No Symptoms Pulmonary: Reports: No Symptoms Cardiovascular: Reports: No Symptoms Gastrointestinal: Reports: No Symptoms Genitourinary: Reports: No Symptoms Musculoskeletal: Reports: No Symptoms Skin: Reports: No Symptoms Neurological: Reports: No Symptoms Psychiatric: Reports: No Symptoms - Patient Data Vital Signs - Most Recent: Last Vital Signs Temp 36.8 C 08/26/20 07:25 Pulse 83 08/26/20 07:25 Resp 17 08/26/20 07:25 BP 135/74 08/26/20 07:25 Pulse Ox 97 08/26/20 07:25 Weight - Most Recent: 242 lb I&O - Last 24 Hours: Intake & Output 08/25/20 08/26/20 08/26/20 22:59 06:59 14:59 Output Total 600 Balance -600 Med Orders - Current: Current Medications Bisacodyl (Bisacodyl 10 Mg Supp) 10 mg RECTAL ONETIME PRN PRN Reason: Constipation Dextrose/Water (50% Dextrose In Water 50 Ml Syringe) 50 ml IV ASDIRECTED PRN PRN Reason: Hypoglycemia Diphenhydramine HCl (Diphenhydramine 50 Mg/Ml Sdv) 12.5 mg IVPUSH Q2H PRN PRN Reason: Itching Diphenhydramine HCl (Diphenhydramine 50 Mg/Ml Sdv) 25 mg IVPUSH Q6H PRN PRN Reason: Itching or Nausea Docusate Sodium (Docusate Sodium 100 Mg Cap) 100 mg PO BID [facility] Last Admin: 08/26/20 08:51 Dose: 100 mg Documented by: Emollient Ointment (Lanolin 100% Cream 7 Gm Tube) 0 gm TOP ASDIRECTED PRN PRN Reason: Sore Nipples Fentanyl (Fentanyl 100 Mcg/2 Ml Sdv) 50 mcg IVPUSH Q1H PRN PRN Reason: Pain (severe 7-10) Glucagon (Glucagon,Human Recombinant 1 Mg Vial) 1 mg IM ASDIRECTED PRN PRN Reason: Hypoglycemia Lactated Ringer's (Ringers, Lactated) 1,000 mls @ 500 mls/hr IV BOLUS [facility] Last Admin: 08/24/20 20:54 Dose: 999 mls/hr Documented by: Oxytocin/Sodium Chloride (Oxytocin 30 Unit/500 Ml-Ns) 30 unit in 500 mls @ 250 mls/hr IV TITRATE [facility] Lactated Ringer's (Ringers, Lactated) 1,000 mls @ 125 mls/hr IV ASDIRECTED [facility] Last Admin: 08/25/20 04:04 Dose: 125 mls/hr Documented by: Tranexamic Acid 1,000 mg/ (Sodium Chloride) 110 mls @ 660 mls/hr IV ONETIME PRN PRN Reason: Bleeding Ibuprofen (Ibuprofen 800 Mg Tab) 800 mg PO Q8H PRN PRN Reason: mild pain or fever Last Admin: 08/26/20 06:27 Dose: 800 mg Documented by: Nalbuphine HCl (Nalbuphine 10 Mg/1 Ml Vial) 5 mg IVPUSH ASDIRECTED PRN PRN Reason: Itching Ondansetron HCl (Ondansetron 4 Mg/2 Ml Sdv) 4 mg IVPUSH Q6H PRN PRN Reason: Nausea Ondansetron HCl (Ondansetron 4 Mg/2 Ml Sdv) 4 mg IVPUSH Q4H PRN PRN Reason: Nausea/Vomiting Oxycodone/Acetaminophen (Acetaminophen/Oxycodone 325-5 Mg Tab) 2 tab PO Q6H PRN PRN Reason: Pain (moderate 4-6) Oxycodone/Acetaminophen (Acetaminophen/Oxycodone 325-5 Mg Tab) 1 tab PO Q4H PRN PRN Reason: Pain (moderate 4-6) Last Admin: 08/26/20 08:51 Dose: 1 tab Documented by: Oxycodone/Acetaminophen (Acetaminophen/Oxycodone 325-5 Mg Tab) 2 tab PO Q4H PRN PRN Reason: Pain (moderate 4-6) Last Admin: 08/26/20 02:44 Dose: 2 tab Documented by: Oxytocin (Oxytocin 10 Units/1 Ml Sdv) 10 unit IM ASDIRECTED PRN PRN Reason: Excessive Vaginal Bleeding Simethicone (Simethicone 80 Mg Tab.Chew) 160 mg PO QID [facility] Last Admin: 08/26/20 06:27 Dose: 160 mg Documented by: Sodium Chloride (Sodium Chloride 0.9% 10 Ml Syringe) 10 ml FLUSH ASDIRECTED PRN PRN Reason: Keep Vein Open Sodium Chloride (Sodium Chloride 0.9% 2.5 Ml Syringe) 2.5 ml FLUSH ASDIRECTED PRN PRN Reason: Keep Vein Open Sodium Chloride (Sodium Chloride 0.9% 10 Ml Sdv) 10 ml IV ASDIRECTED PRN PRN Reason: IV Use Discontinued Medications Cefazolin Sodium (Cefazolin 1 Gm Vial) Confirm Administered Dose 2 gm .ROUTE .STK-MED ONE Stop: 08/24/20 22:04 Citric Acid/Sodium Citrate (Citric Acid/Sodium Citrate Solution 30 Ml Cup) 30 ml PO ONETIME ONE Stop: 08/24/20 19:37 Last Admin: 08/25/20 09:00 Dose: Not Given Documented by: Ephedrine Sulfate (Ephedrine 50 Mg/Ml Sdv) Confirm Administered Dose 50 mg .ROUTE .STK-MED ONE Stop: 08/24/20 22:04 Cefazolin Sodium/Dextrose 2 gm (/ Premix) 50 mls @ 100 mls/hr IV ONETIME ONE Stop: 08/24/20 20:05 Last Admin: 08/25/20 09:00 Dose: Not Given Documented by: Sodium Chloride (Normal Saline) Confirm Administered Dose 60 mls @ as directed .ROUTE .STK-MED ONE Stop: 08/24/20 20:06 Last Admin: 08/25/20 09:00 Dose: Not Given Documented by: Ibuprofen (Ibuprofen 800 Mg Tab) 800 mg PO Q8H PRN PRN Reason: mild pain or fever Insulin Human Isoph/Insulin Regular (Insulin Nph/Insulin Regular,Human 70-30 100 Units/Ml 10 Ml Vial) 0 unit SUBCUT BIDAC [facility]; Protocol Last Admin: 08/25/20 09:14 Dose: Not Given Documented by: Ketorolac Tromethamine (Ketorolac 30 Mg/Ml Sdv) 30 mg IVPUSH Q6H [facility] Stop: 08/25/20 22:46 Last Admin: 08/25/20 22:31 Dose: 30 mg Documented by: Labetalol HCl (Labetalol 100 Mg Tab) 100 mg PO ONETIME ONE Stop: 08/25/20 17:45 Last Admin: 08/25/20 18:12 Dose: 100 mg Documented by: Morphine Sulfate (Morphine Pf 10 Mg/10 Ml Sdv) Confirm Administered Dose 10 mg .ROUTE .STK-MED ONE Stop: 08/24/20 21:23 Last Admin: 08/25/20 09:00 Dose: Not Given Documented by: Naloxone HCl (Naloxone 0.4 Mg/Ml Syringe) 0.1 mg IVPUSH ONETIME PRN PRN Reason: Respiratory Depression Stop: 08/25/20 20:51 Oxytocin (Oxytocin 10 Units/1 Ml Sdv) Confirm Administered Dose 20 unit .ROUTE .STK-MED ONE Stop: 08/24/20 22:05 Propofol (Propofol 200 Mg/20 Ml Sdv) Confirm Administered Dose 200 mg .ROUTE .STK-MED ONE Stop: 08/24/20 20:58 - Infant Interaction Disposition, : in Room with Family Interaction: Holding Infant Support Person: - Recovery Exam Fundal Tone: Firm Fundal Level: 1 Fingerbreadths Below Umbilicus Fundal Placement: Midline Lochia Amount: Scant Lochia Color: Rubra/Red Perineum Description: Intact, Minimal Bruising/Swelling Episiotomy/Laceration: None Bladder Status: Voiding Urinary Elimination: Voided - Exam General: Alert, Oriented, Cooperative, No Acute Distress HEENT: Pupils Equal, Pupils Reactive Neck: Supple, Trachea Midline, No JVD Lungs: Normal Respiratory Effort GI/Abdominal Exam: Soft, Non-Tender, No Distention Extremities: Normal Inspection, Normal Range of Motion, Non-Tender, No Pedal Edema Skin: Warm, Dry, Intact Wound/Incisions: Dressing Dry and Intact Neurological: No New Focal Deficit Psy/Mental Status: Alert, Normal Affect, Normal Mood - Problem List Review Problem List Initiated/Reviewed/Updated: Yes - Assessment Assessment:: 35yo POD2 s/p repeat due to PRROM at 36w4d, malpresentation and prior . complicated by GDMA2. Stable and recovering well. - Plan Plan:: - Few elevated BPs yesterday 140s/70-80s, given labetalol 100mg PO. BP wnl today, asymptomatic. Will monitor closely - tolerating PO, passed flatus - Bleeding light, Hgb 9.9, denies s/s of anemia, will start iron after discharge - encouraged ambulating - baby needing IV treatment due to hypoglycemia Plan for discharge home tomorrow.
[2020-08-27] MEDS: Simethicone 80 MG Tab.Chew PO SCH ×4 (00:52→12:31)
[2020-08-27] MEDS: Acetaminophen/oxyCODONE 325-5 MG Tab PO PRN (06:16)
[2020-08-27] MEDS: Docusate Sodium 100 MG Cap PO SCH (09:23)
[2020-08-27] MEDS: Ibuprofen 800 MG Tab PO PRN (09:23)
[2020-08-27 11:46] VITALS: PULSE 78
[2020-08-27] MEDS ORDERED: NIFEdipine 30 MG Tab.ER PO ONE (11:57)
--- NOTE | 2020-08-27 12:14 | PCM.PNPP ---
- General Info Date of Service: 08/27/20 Functional Status: Reports: Pain Controlled, Tolerating Diet, Ambulating, Urinating - Review of Systems General: Reports: No Symptoms HEENT: Reports: No Symptoms Pulmonary: Reports: No Symptoms Cardiovascular: Reports: No Symptoms Gastrointestinal: Reports: No Symptoms Genitourinary: Reports: No Symptoms Musculoskeletal: Reports: No Symptoms Skin: Reports: No Symptoms Neurological: Reports: No Symptoms Psychiatric: Reports: No Symptoms - Patient Data Vital Signs - Most Recent: Last Vital Signs Temp 35.9 C L 08/27/20 11:45 Pulse 78 08/27/20 11:45 Resp 18 08/27/20 11:45 BP 144/85 H 08/27/20 11:45 Pulse Ox 97 08/27/20 08:36 Weight - Most Recent: 242 lb Lab Results - Last 24 Hours: Laboratory Results - last 24 hr 08/24/20 Range/Units 19:40 RPR Non-Reac (Non-Reac) Med Orders - Current: Current Medications Bisacodyl (Bisacodyl 10 Mg Supp) 10 mg RECTAL ONETIME PRN PRN Reason: Constipation Dextrose/Water (50% Dextrose In Water 50 Ml Syringe) 50 ml IV ASDIRECTED PRN PRN Reason: Hypoglycemia Diphenhydramine HCl (Diphenhydramine 50 Mg/Ml Sdv) 12.5 mg IVPUSH Q2H PRN PRN Reason: Itching Diphenhydramine HCl (Diphenhydramine 50 Mg/Ml Sdv) 25 mg IVPUSH Q6H PRN PRN Reason: Itching or Nausea Docusate Sodium (Docusate Sodium 100 Mg Cap) 100 mg PO BID [facility] Last Admin: 08/27/20 09:23 Dose: 100 mg Documented by: Emollient Ointment (Lanolin 100% Cream 7 Gm Tube) 0 gm TOP ASDIRECTED PRN PRN Reason: Sore Nipples Fentanyl (Fentanyl 100 Mcg/2 Ml Sdv) 50 mcg IVPUSH Q1H PRN PRN Reason: Pain (severe 7-10) Glucagon (Glucagon,Human Recombinant 1 Mg Vial) 1 mg IM ASDIRECTED PRN PRN Reason: Hypoglycemia Lactated Ringer's (Ringers, Lactated) 1,000 mls @ 500 mls/hr IV BOLUS [facility] Last Admin: 08/24/20 20:54 Dose: 999 mls/hr Documented by: Oxytocin/Sodium Chloride (Oxytocin 30 Unit/500 Ml-Ns) 30 unit in 500 mls @ 250 mls/hr IV TITRATE [facility] Lactated Ringer's (Ringers, Lactated) 1,000 mls @ 125 mls/hr IV ASDIRECTED [facility] Last Admin: 08/25/20 04:04 Dose: 125 mls/hr Documented by: Tranexamic Acid 1,000 mg/ (Sodium Chloride) 110 mls @ 660 mls/hr IV ONETIME PRN PRN Reason: Bleeding Ibuprofen (Ibuprofen 800 Mg Tab) 800 mg PO Q8H PRN PRN Reason: mild pain or fever Last Admin: 08/27/20 09:23 Dose: 800 mg Documented by: Nalbuphine HCl (Nalbuphine 10 Mg/1 Ml Vial) 5 mg IVPUSH ASDIRECTED PRN PRN Reason: Itching Nifedipine (Nifedipine 30 Mg Tab.Er) 30 mg PO ONETIME ONE Stop: 08/27/20 11:58 Ondansetron HCl (Ondansetron 4 Mg/2 Ml Sdv) 4 mg IVPUSH Q6H PRN PRN Reason: Nausea Ondansetron HCl (Ondansetron 4 Mg/2 Ml Sdv) 4 mg IVPUSH Q4H PRN PRN Reason: Nausea/Vomiting Oxycodone/Acetaminophen (Acetaminophen/Oxycodone 325-5 Mg Tab) 2 tab PO Q6H PRN PRN Reason: Pain (moderate 4-6) Last Admin: 08/27/20 10:49 Dose: 2 tab Documented by: Oxycodone/Acetaminophen (Acetaminophen/Oxycodone 325-5 Mg Tab) 1 tab PO Q4H PRN PRN Reason: Pain (moderate 4-6) Last Admin: 08/27/20 06:16 Dose: 1 tab Documented by: Oxycodone/Acetaminophen (Acetaminophen/Oxycodone 325-5 Mg Tab) 2 tab PO Q4H PRN PRN Reason: Pain (moderate 4-6) Last Admin: 08/26/20 22:33 Dose: 2 tab Documented by: Oxytocin (Oxytocin 10 Units/1 Ml Sdv) 10 unit IM ASDIRECTED PRN PRN Reason: Excessive Vaginal Bleeding Simethicone (Simethicone 80 Mg Tab.Chew) 160 mg PO QID [facility] Last Admin: 08/27/20 06:17 Dose: 160 mg Documented by: Sodium Chloride (Sodium Chloride 0.9% 10 Ml Syringe) 10 ml FLUSH ASDIRECTED PRN PRN Reason: Keep Vein Open Sodium Chloride (Sodium Chloride 0.9% 2.5 Ml Syringe) 2.5 ml FLUSH ASDIRECTED PRN PRN Reason: Keep Vein Open Sodium Chloride (Sodium Chloride 0.9% 10 Ml Sdv) 10 ml IV ASDIRECTED PRN PRN Reason: IV Use Discontinued Medications Cefazolin Sodium (Cefazolin 1 Gm Vial) Confirm Administered Dose 2 gm .ROUTE .STK-MED ONE Stop: 08/24/20 22:04 Citric Acid/Sodium Citrate (Citric Acid/Sodium Citrate Solution 30 Ml Cup) 30 ml PO ONETIME ONE Stop: 08/24/20 19:37 Last Admin: 08/25/20 09:00 Dose: Not Given Documented by: Ephedrine Sulfate (Ephedrine 50 Mg/Ml Sdv) Confirm Administered Dose 50 mg .ROUTE .STK-MED ONE Stop: 08/24/20 22:04 Cefazolin Sodium/Dextrose 2 gm (/ Premix) 50 mls @ 100 mls/hr IV ONETIME ONE Stop: 08/24/20 20:05 Last Admin: 08/25/20 09:00 Dose: Not Given Documented by: Sodium Chloride (Normal Saline) Confirm Administered Dose 60 mls @ as directed .ROUTE .STK-MED ONE Stop: 08/24/20 20:06 Last Admin: 08/25/20 09:00 Dose: Not Given Documented by: Ibuprofen (Ibuprofen 800 Mg Tab) 800 mg PO Q8H PRN PRN Reason: mild pain or fever Insulin Human Isoph/Insulin Regular (Insulin Nph/Insulin Regular,Human 70-30 100 Units/Ml 10 Ml Vial) 0 unit SUBCUT BIDAC [facility]; Protocol Last Admin: 08/25/20 09:14 Dose: Not Given Documented by: Ketorolac Tromethamine (Ketorolac 30 Mg/Ml Sdv) 30 mg IVPUSH Q6H [facility] Stop: 08/25/20 22:46 Last Admin: 08/25/20 22:31 Dose: 30 mg Documented by: Labetalol HCl (Labetalol 100 Mg Tab) 100 mg PO ONETIME ONE Stop: 08/25/20 17:45 Last Admin: 08/25/20 18:12 Dose: 100 mg Documented by: Morphine Sulfate (Morphine Pf 10 Mg/10 Ml Sdv) Confirm Administered Dose 10 mg .ROUTE .STK-MED ONE Stop: 08/24/20 21:23 Last Admin: 08/25/20 09:00 Dose: Not Given Documented by: Naloxone HCl (Naloxone 0.4 Mg/Ml Syringe) 0.1 mg IVPUSH ONETIME PRN PRN Reason: Respiratory Depression Stop: 08/25/20 20:51 Oxytocin (Oxytocin 10 Units/1 Ml Sdv) Confirm Administered Dose 20 unit .ROUTE .STK-MED ONE Stop: 08/24/20 22:05 Propofol (Propofol 200 Mg/20 Ml Sdv) Confirm Administered Dose 200 mg .ROUTE .STK-MED ONE Stop: 08/24/20 20:58 - Infant Interaction Infant Disposition, : in Room with Family Interaction: Holding Support Person: - Recovery Exam Fundal Tone: Firm Fundal Level: 1 Fingerbreadths Below Umbilicus Fundal Placement: Midline Lochia Amount: Scant Lochia Color: Rubra/Red Perineum Description: Intact, Minimal Bruising/Swelling Episiotomy/Laceration: None Bladder Status: Voiding Urinary Elimination: Voided - Exam General: Alert, Oriented, Cooperative, No Acute Distress HEENT: Pupils Equal, Pupils Reactive Neck: Supple, Trachea Midline, No JVD Lungs: Normal Respiratory Effort GI/Abdominal Exam: Soft, Non-Tender, No Distention Extremities: Normal Inspection, Normal Range of Motion, Non-Tender, No Pedal Edema Skin: Warm, Dry, Intact Wound/Incisions: Dressing Dry and Intact Neurological: No New Focal Deficit Psy/Mental Status: Alert, Normal Affect, Normal Mood - Problem List Review Problem List Initiated/Reviewed/Updated: Yes - My Orders Last 24 Hours: My Active Orders 08/27/20 11:56 Ready for Discharge [RC] PER UNIT ROUTINE 08/27/20 11:57 NIFEdipine [Procardia XL] 30 mg PO ONETIME ONE - Assessment Assessment:: 35yo POD3 s/p repeat , new onset of mild hypertension - Plan Plan:: - Continues to have mildly elevated BPs, 140s/70-80s, will start procardia 30XL. - tolerating PO, passed flatus - Bleeding light, Hgb 9.9, denies s/s of anemia, will start iron after discharge - encouraged ambulating Plan for discharge home today. Reviewed postop care instructions. Advised BP checks at home daily, and signs of worsening preeclampsia. Follow up in clinic in 1 weeks for CASTRO removal and BP check
[2020-08-27 12:24] VITALS: BP 147/89
== END 2020-08-27 17:39 | disposition home or self-care (01) | DRG 788 ==
LOC: MW.OB 18:25 → MW.OBCHECK 18:25 → MW.OB 19:36 → MW.OBCHECK 19:36 → MW.OB 08-25 01:50
PROVIDERS: ADMIT Obstetrics & Gynecology; ATTEND Obstetrics & Gynecology
PROC: 10D00Z1 Extraction of Products of Conception, Low, Open Approach (ICD-10-PCS; principal; 2020-08-24)
DX: O42.013 Preterm premature rupture of membranes, onset of labor within 24 hours of rupture, third trimester (principal); O34.211 Maternal care for low transverse scar from previous cesarean delivery; Z37.0 Single live birth; O16.5 Unspecified maternal hypertension, complicating the puerperium; O24.429 Gestational diabetes mellitus in childbirth, unspecified control; O32.2XX0 Maternal care for transverse and oblique lie, not applicable or unspecified; Z20.822 Contact with and (suspected) exposure to COVID-19; Z3A.36 36 weeks gestation of pregnancy
CPT/HCPCS: 36415; 51702; 59025; 82803; 82947; 84112; 85014; 85018; 85027; 86592; 86850; 86900; 86901; 88307; A9270-GY; J0690; J1815-GY; J1885; J2270; J2590; J2704; J7120; U0002

== ENCOUNTER 2020-08-28 17:36 | Emergency (ER) | payer OTHER ==
[2020-08-28] MEDS ORDERED: Atenolol 25 MG Tab PO ONE (17:52)
[2020-08-28] MEDS ORDERED: Sodium Chloride 0.9% 2.5 ML Syringe FLUSH PRN (17:53)
[2020-08-28] MEDS ORDERED: Sodium Chloride 0.9% 10 ML Syringe FLUSH PRN (17:53)
[2020-08-28] MEDS ORDERED: Furosemide 20 MG Tab PO ONE (17:55)
--- NOTE | 2020-08-28 17:56 | EDM.PDOC ---
<Waldemar Bro - Last Filed: 08/28/20 18:38> ED HPI GENERAL MEDICAL PROBLEM - General Chief Complaint: General Stated Complaint: HIGH BP Time Seen by Provider: 08/28/20 17:48 - History of Present Illness INITIAL COMMENTS - FREE TEXT/NARRATIVE: History of present illness: [] The patient has headache. She noted her blood pressure is up. She was having trouble with her blood pressure when she was discharged yesterday after she had a baby 4 days ago. The patient had blood pressure issues only after . She is on nifedipine. She also noted some swelling of her hands and feet. She has no dysuria or fever. The patient's not breast-feeding. Review of systems: As per history of present illness and below otherwise all systems reviewed and negative. Past medical history: As per history of present illness and as reviewed below otherwise noncontributory. Surgical history: As per history of present illness and as reviewed below otherwise noncontributory. Social history: No reported history of drug or alcohol abuse. Family history: As per history of present illness and as reviewed below otherwise noncontributory. Physical exam: Constitutional - well developed, well-nourished and in no acute distress HEENT - normocephalic, no evidence of trauma - external nose and mouth normal - no mass in neck and no JVD - mucosae moist EYES - full EOM, PERRL, no icterus - no evidence of inflammation, injection, or drainage Respiratory - no respiratory distress, equal bilateral expansion, lungs clear to auscultation and no abnormal lung sounds Cardiovascular - Regular Rhythm with S1 and S2 appreciated and no murmur, gallop or rub. GI - abdomen soft without distension or organomegaly - normal bowel sounds - no guard or rebound Musculoskeletal no gross deformity of long bones or joints - no tenderness, swelling or edema Neurologic - Alert and oriented times four - CN II-XII grossly intact - motor sensory and coordination symmetrically normal Psychiatric - appropriate mood and affect with normal thought content Hematologic - No petechiae or purpura - mucosa appropriate color and sclera not pale - normal nail bed color and refill Integument - no rash or evidence of trauma - normal turgor Blood pressure 144/93. Diagnostics: [] Therapeutics: [] Impression: [] Plan: [] Definitive disposition and diagnosis as appropriate pending reevaluation and review of above. Anterior Head Pain Score (Numeric/FACES): 4 - Related Data Allergies Allergy/AdvReac Type Severity Reaction Status Date / Time No Known Allergies Allergy Verified 08/28/20 17:47 Home Meds: Home Meds Pnv No.95/Ferrous Fum/Folic AC [ Caplet] 1 cap PO DAILY 02/13/20 [History] Acetaminophen/oxyCODONE [Percocet 325-5 MG] 1 tab PO Q6H PRN #20 tablet 08/26/20 [Rx] Docusate Sodium [Colace] 100 mg PO BID cap 08/26/20 [Rx] Ferrous Sulfate 325 mg PO BID #120 tablet 08/26/20 [Rx] Ibuprofen [Motrin] 800 mg PO Q8H PRN #20 tablet 08/26/20 [Rx] NIFEdipine [Nifedical XL] 30 mg PO DAILY #60 tab.er 08/27/20 [Rx] Furosemide [Lasix] 20 mg PO DAILY #30 tab 08/28/20 [Rx] Past Medical History - Past Health History Medical/Surgical History: Denies Medical/Surgical History HEENT History: Reports: Impaired Vision Other HEENT History: Contacts Cardiovascular History: Reports: None Respiratory History: Reports: None Gastrointestinal History: Reports: Cholelithiasis Genitourinary History: Reports: None [employer] History: Reports: Other [employer] History: x 2 c section Musculoskeletal History: Reports: None Neurological History: Reports: None Psychiatric History: Reports: None Endocrine/Metabolic History: Reports: Diabetes, Gestational, Obesity/BMI 30+ Hematologic History: Reports: None Immunologic History: Reports: None Oncologic (Cancer) History: Reports: None Dermatologic History: Reports: None - Infectious Disease History Infectious Disease History: Reports: None - Past Surgical History Head Surgeries/Procedures: Reports: None HEENT Surgical History: Reports: Adenoidectomy, Oral Surgery, Tonsillectomy GI Surgical History: Reports: Cholecystectomy Female Surgical History: Reports: Section Endocrine Surgical History: Reports: None Dermatological Surgical History: Reports: None Social & Family History - Family History Family Medical History: No Pertinent Family History HEENT: Reports: None Cardiac: Reports: None Respiratory: Reports: None GI: Reports: Cholelithiasis : Reports: None OBGYN: Reports: Musculoskeletal: Reports: None Neurological: Reports: None Psychiatric: Reports: None Endocrine/Metabolic: Reports: Diabetes, Type I Hematologic: Reports: None Immunologic: Reports: None Dermatologic: Reports: None Oncologic: Reports: Ovarian - Caffeine Use Caffeine Use: Reports: None ED ROS GENERAL - Review of Systems Review Of Systems: Comprehensive ROS is negative, except as noted in HPI. ED EXAM, GENERAL - Physical Exam Exam: See Below Free Text/Narrative:: My physical labs in the HPI Course - Vital Signs Text/Narrative:: 1838 hrs. blood pressure 138/85 headaches better. Plan to discharge. Departure - Departure Disposition: Home, Self-Care 01 Condition: Good Clinical Impression: Hypertension Qualifiers: Hypertension type: unspecified Qualified Code(s): I10 - Essential (primary) hypertension - Discharge Information Prescriptions: Furosemide [Lasix] 20 mg PO DAILY #30 tab Instructions: Hypokalemia Referrals: Manpreet Nino MD [Primary Care Provider] - Forms: ED Department Discharge Additional Instructions: Furosemide causes you to lose potassium. Please pay attention to the high potassium diet. Follow-up PMD. [facility] [address] [place], [place] [id number] [place] [address] The following information is given to patients seen in the emergency department who are being discharged to home. This information is to outline your options for follow-up care. We provide all patients seen in our emergency department with a follow-up referral. The need for follow-up, as well as the timing and circumstances, are variable depending upon the specifics of your emergency department visit. If you don't have a primary care physician on staff, we will provide you with a referral. We always advise you to contact your personal physician following an emergency department visit to inform them of the circumstance of the visit and for follow-up with them and/or the need for any referrals to a consulting specialist. The emergency department will also refer you to a specialist when appropriate. This referral assures that you have the opportunity for follow-up care with a specialist. All of these measure are taken in an effort to provide you with optimal care, which includes your follow-up. Under all circumstances we always encourage you to contact your private physician who remains a resource for coordinating your care. When calling for follow-up care, please make the office aware that this follow-up is from your recent emergency room visit. If for any reason you are refused follow-up, please contact the [facility] Emergency Department at and asked to speak to the emergency department charge nurse. Sepsis Event Note (ED) - Evaluation Sepsis Screening Result: No Definite Risk <Girish Jaimes - Last Filed: 08/28/20 19:07> Course - Vital Signs Last Recorded V/S: Last Vital Signs Temp 97.6 F 08/28/20 17:47 Pulse 69 08/28/20 18:30 Resp 18 08/28/20 18:30 BP 138/85 08/28/20 18:30 Pulse Ox 97 08/28/20 18:30 - Orders/Labs/Meds Labs: Laboratory Tests 08/28/20 08/28/20 08/28/20 Range/Units 18:15 18:15 18:25 WBC 8.20 (4.0-11.0) K/uL RBC 3.83 L (4.30-5.90) M/uL Hgb 10.6 L (12.0-16.0) g/dL Hct 33.8 L (36.0-46.0) % MCV 88.3 (80.0-98.0) fL MCH 27.7 (27.0-32.0) pg MCHC 31.4 (31.0-37.0) g/dL RDW Std Deviation 48.9 (28.0-62.0) fl RDW Coeff of Norma 15 (11.0-15.0) % Plt Count 295 (150-400) K/uL MPV 10.50 (7.40-12.00) fL Neut % (Auto) 71.1 (48.0-80.0) % Lymph % (Auto) 18.3 (16.0-40.0) % Avery % (Auto) 8.4 (0.0-15.0) % Eos % (Auto) 1.8 (0.0-7.0) % Baso % (Auto) 0.4 (0.0-1.5) % Neut # (Auto) 5.8 H (1.4-5.7) K/uL Lymph # (Auto) 1.5 (0.6-2.4) K/uL Avery # (Auto) 0.7 (0.0-0.8) K/uL Eos # (Auto) 0.2 (0.0-0.7) K/uL Baso # (Auto) 0.0 (0.0-0.1) K/uL Nucleated RBC % 0.0 /100WBC Nucleated RBCs # 0 K/uL Sodium 136 (136-145) mmol/L Potassium 3.9 (3.5-5.1) mmol/L Chloride 102 (98-107) mmol/L Carbon Dioxide 24.7 (21.0-32.0) mmol/L BUN 9 (7.0-18.0) mg/dL Creatinine 0.7 (0.6-1.0) mg/dL Est Cr Clr Drug Dosing 88.72 mL/min Estimated GFR (MDRD) > 60.0 ml/min Glucose 92 (74-106) mg/dL Calcium 8.6 (8.5-10.1) mg/dL Total Bilirubin 0.5 (0.2-1.0) mg/dL AST 44 H (15-37) IU/L ALT 40 (14-63) IU/L Alkaline Phosphatase 112 (46-116) U/L Total Protein 7.1 (6.4-8.2) g/dL Albumin 2.8 L (3.4-5.0) g/dL Globulin 4.3 H (2.6-4.0) g/dL Albumin/Globulin Ratio 0.7 L (0.9-1.6) Urine Color DARK YELLOW Urine Appearance CLOUDY Urine pH 6.0 (5.0-8.0) Ur Specific [place] 1.025 (1.001-1.035) Urine Protein 30 H (NEGATIVE) mg/dL Urine Glucose (UA) NEGATIVE (NEGATIVE) mg/dL Urine Ketones NEGATIVE (NEGATIVE) mg/dL Urine Occult Blood LARGE H (NEGATIVE) Urine Nitrite NEGATIVE (NEGATIVE) Urine Bilirubin NEGATIVE (NEGATIVE) Urine Urobilinogen 1.0 (<2.0) EU/dL Ur Leukocyte Esterase TRACE H (NEGATIVE) Urine RBC 70-80 (0-2/HPF) Urine WBC 1-3 (0-5/HPF) Ur Epithelial Cells MANY (NONE-FEW) Urine Bacteria FEW (NEGATIVE) Urine Mucus LIGHT (NONE-MOD) Meds: Medications Discontinued Medications Generic Name Dose Route Start Last Admin Trade Name Freq PRN Reason Stop Dose Admin Atenolol 25 mg 08/28/20 17:52 08/28/20 18:15 Atenolol 25 Mg Tab PO 08/28/20 17:53 Not Given ONETIME ONE Furosemide 20 mg 08/28/20 17:55 08/28/20 18:14 Furosemide 20 Mg Tab PO 08/28/20 17:56 20 mg ONETIME ONE Administration Sodium Chloride 10 ml 08/28/20 17:53 Sodium Chloride 0.9% 10 Ml Syringe FLUSH ASDIRECTED PRN Keep Vein Open Sodium Chloride 2.5 ml 08/28/20 17:53 Sodium Chloride 0.9% 2.5 Ml Syringe FLUSH ASDIRECTED PRN Keep Vein Open - Re-Assessments/Exams Free Text/Narrative Re-Assessment/Exam: 08/28/20 19:07 Potassium is normal. Will discharge patient, return precautions discussed Departure - Departure Time of Disposition: 19:07 Sepsis Event Note (ED) - Focused Exam Vital Signs: Vital Signs Temp Pulse Resp BP Pulse Ox 08/28/20 18:30 69 18 138/85 97 08/28/20 17:47 97.6 F 84 18 144/93 H 100
[2020-08-28 18:48] LABS: BLOOD UREA NITROGEN,BUN 9 mg/dL (7.0-18.0); CARBON DIOXIDE,CO2 24.7 mmol/L (21.0-32.0); CHLORIDE,CL 102 mmol/L (98-107); GLUCOSE RANDOM 92 mg/dL (74-106); POTASSIUM,K 3.9 mmol/L (3.5-5.1); SODIUM,NA 136 mmol/L (136-145)
[2020-08-28 19:19] VITALS: BP 125/77; PULSE 79
== END 2020-08-28 19:19 | disposition home or self-care (01) ==
LOC: MW.ED 17:36
DX: I10 Essential (primary) hypertension (principal); E66.9 Obesity, unspecified; Z68.41 Body mass index [BMI] 40.0-44.9, adult
CPT/HCPCS: 36415; 80053; 81001; 85025; 99283; A9270

== ENCOUNTER 2022-08-24 10:40 | Emergency (ER) | payer OTHER ==
[2022-08-24 10:51] VITALS: BP 180/100; PULSE 82
[2022-08-24 11:45] LABS: BASOPHILS PERCENT AUTO 0.1 % (0.0-1.5); EOSINOPHILS ABSOLUTE AUTO 0.1 K/uL (0.0-0.7); HEMATOCRIT 38.1 % (36.0-46.0); HEMOGLOBIN 12.7 g/dL (12.0-16.0); LYMPHOCYTES ABSOLUTE AUTO 1.8 K/uL (0.6-2.4); LYMPHOCYTES PERCENT AUTO 26.8 % (16.0-40.0); MEAN CORPUSCULAR HEMOGLOBIN 29.1 pg (27.0-32.0); MEAN CORPUSCULAR HGB CONC 33.3 g/dL (31.0-37.0); MEAN CORPUSCULAR VOLUME 87.2 fL (80.0-98.0); MONOCYTES ABSOLUTE AUTO 0.5 K/uL (0.0-0.8); MONOCYTES PERCENT AUTO 6.9 % (0.0-15.0); NEUTROPHILS ABSOLUTE AUTO 4.4 K/uL (1.4-5.7); NEUTROPHILS PERCENT AUTO 65.2 % (48.0-80.0); NRBC ABSOLUTE 0 K/uL; PLATELET COUNT,PLT 235 K/uL (150-400); RED BLOOD CELL COUNT 4.37 M/uL (4.30-5.90); WHITE BLOOD CELL COUNT,WBC 6.68 K/uL (4.0-11.0)
[2022-08-24 12:04] LABS: ALBUMIN 3.7 g/dL (3.4-5.0); BILIRUBIN TOTAL 0.4 mg/dL (0.2-1.0); CARBON DIOXIDE,CO2 28.7 mmol/L (21.0-32.0); CREATININE 0.8 mg/dL (0.6-1.0); EST CRCL DRUG DOSING (CG) 76.15 mL/min; POTASSIUM,K 4.4 mmol/L (3.5-5.1); PROTEIN TOTAL,TP 7.3 g/dL (6.4-8.2)
== END 2022-08-24 13:41 | disposition home or self-care (01) ==
LOC: MW.ED 10:40
DX: N93.9 Abnormal uterine and vaginal bleeding, unspecified (principal); E66.9 Obesity, unspecified; Z68.41 Body mass index [BMI] 40.0-44.9, adult
CPT/HCPCS: 36415; 80053; 84703; 85025; 93005; 99284

== ENCOUNTER 2023-10-08 09:57 | Emergency (ER) | payer BC ==
[2023-10-08 11:33] VITALS: BP 126/81; PULSE 71
== END 2023-10-08 11:29 | disposition home or self-care (01) ==
LOC: MW.ED 09:57
DX: M77.32 Calcaneal spur, left foot (principal); E66.9 Obesity, unspecified; Z90.49 Acquired absence of other specified parts of digestive tract; Z68.41 Body mass index [BMI] 40.0-44.9, adult; Z75.8 Other problems related to medical facilities and other health care
CPT/HCPCS: 73650-26-LT; 73650-LT; 99283